=== PATIENT | male | born 2005 | race Caucasian/White ===

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

== ENCOUNTER → 2023-02-12 18:22 | Outpatient (CLI) | payer OTHER, MEDICAID, SELFPAY ==
[2023-02-12 19:18] LABS: Influenza A - CEPHEID Flu A NEGATIVE (NEGATIVE); Influenza B - CEPHEID Flu B NEGATIVE (NEGATIVE); Respiratory Syncytial Virus Negative (Negative)
[2023-02-12 21:17] LABS: COVID-19 CEPHEID 4-PLEX PCR Negative (Negative)
== END ==
PROVIDERS: Family Provider Pediatrics; PCP Family Medicine; Visit Provider Registered Nurse
DX: R50.9 Fever, unspecified (principal); J02.9 Acute pharyngitis, unspecified
CPT/HCPCS: 0241U; 87070; 87880

== ENCOUNTER → 2023-03-23 15:00 | Outpatient (CLI) | payer OTHER, MEDICAID, SELFPAY ==
[2023-03-23 17:40] LABS: Urine N gonorrhoeae NOT DETECTED
[2023-03-23 17:42] LABS: Urine Chlamydia NOT DETECTED
[2023-03-24 19:01] LABS: HIV 1 & 2 Ab/Ag 4th Gen Combo NEGATIVE (NEGATIVE); Hep C Virus Ab w/Reflex Quant NEGATIVE s/c (NEGATIVE)
[2023-03-25 06:20] LABS: RPR Screen Non Reactive (Non Reactive)
== END ==
PROVIDERS: Family Provider Pediatrics; PCP Family Medicine; Referring Provider Family Medicine; Visit Provider Family Medicine
DX: Z11.3 Encounter for screening for infections with a predominantly sexual mode of transmission (principal)
CPT/HCPCS: 36415; 86592; 86803; 87389; 87491; 87591

== ENCOUNTER → 2023-06-22 13:47 | Outpatient (CLI) | payer OTHER, MEDICAID, SELFPAY ==
[2023-06-22 16:46] LABS: Urine N gonorrhoeae NOT DETECTED
[2023-06-22 16:48] LABS: Urine Chlamydia NOT DETECTED
== END ==
PROVIDERS: Family Provider Pediatrics; PCP Family Medicine; Referring Provider Family Medicine; Visit Provider Family Medicine
DX: Z77.21 Contact with and (suspected) exposure to potentially hazardous body fluids (principal); Z91.89 Other specified personal risk factors, not elsewhere classified
CPT/HCPCS: 36415; 86592; 87389; 87491; 87591